=== PATIENT | female | born 1965 ===

== ENCOUNTER 2016-06-17 19:06 | Emergency (ER) | payer MEDICAID ==
[2016-06-17 19:15] VITALS: BP 110/54; PULSE 60; RESP 16; TEMP 98.3; O2SAT 98
[2016-06-17] MEDS ORDERED: Sodium Chloride 0.9% 1,000 ML IV STA (19:53)
[2016-06-17 21:01] LABS: BASO # 0.1 K/uL (0.0-0.2); BASO % 1.1 % (0.0-2.0); EOS # 0.3 K/uL (0.0-0.7); EOS % 4.5 % (0.0-4.0); HEMATOCRIT 37.4 % (34.0-47.0); LYMPH # 2.2 K/uL (1.0-4.3); LYMPH % 33.3 % (20.0-40.0); MEAN CELL VOLUME 86.9 fl (81.0-99.0); MEAN CORPUSCULAR HEMOGLOBIN 27.6 pg (27.0-31.0); MEAN CORPUSCULAR HGB CONC 31.8 g/dL (33.0-37.0); MEAN PLATELET VOLUME 9.2 fl (7.2-11.7); MONO # 0.6 K/uL (0.0-0.8); MONO % 9.7 % (0.0-10.0); NEUT # 3.4 K/uL (1.8-7.0); NEUT % 51.4 % (50.0-75.0); RED CELL DISTRIBUTION WIDTH 14.4 % (11.5-14.5); WHITE BLOOD COUNT 6.5 K/uL (4.8-10.8)
[2016-06-17 21:11] LABS: RBC URINE 8 /hpf (0-3); URINE BACTERIA RARE (<OCC); URINE BILIRUBIN NEGATIVE (NEGATIVE); URINE BLOOD NEGATIVE (NEGATIVE); URINE COLOR YELLOW (YELLOW); URINE GLUCOSE (UA) NEG (Normal); URINE KETONE TRACE mg/dL (NEGATIVE); URINE LEUKOCYTE ESTERASE TRACE Leu/uL (Negative); URINE PROTEIN 30 mg/dL (NEGATIVE); URINE UROBILINOGEN 0.2-1.0 mg/dL (0.2-1.0); WBC URINE 6 /hpf (0-5)
--- NOTE | 2016-06-17 21:16 | ED PDOC ---
HPI: Abdomen Time Seen by Provider: 06/17/16 19:27 Chief Complaint (Nursing): Abdominal Pain Chief Complaint (Provider): Abdominal Pain History Per: Patient History/Exam Limitations: no limitations Onset/Duration Of Symptoms: Days (x3), Intermittent Episodes, Worse Since (today ) Outside of [place] travel?: No Current Symptoms Are (Timing): Still Present Severity: Moderate Pain Scale Rating Of: 6 Location Of Pain/Discomfort: Epigastric Associated Symptoms: Diarrhea (5 episodes today, non-bloody), Back Pain (left flank), Urinary Symptoms (urinary discomfort). denies: Fever, Chest Pain, Other (no cough/shortness of breath) Additional Complaint(s): Enid Mendoza is a 51 year old female, with no pertinent past medical history, who presents to the ED on 06/17/16 for the evaluation of intermittent episodes of moderate, epigastric abdominal pain that she has experienced over the past 3 days. Pain, currently rated at a 6/10, acutely worsened over the course of the day today, prompting ED visit. Associated left flank pain, diarrhea (5 episodes today, non-bloody) and mild urinary discomfort also reported, though she denies fever, chest pain, cough or shortness of breath. PMD: non CPH Past Medical History Reviewed: Historical Data, Nursing Documentation, Vital Signs Vital Signs: Last Vital Signs Temp 98.3 F 06/17/16 19:13 Pulse 60 06/17/16 19:13 Resp 16 06/17/16 19:13 BP 110/54 L 06/17/16 19:13 Pulse Ox 98 06/17/16 21:40 - Medical History PMH: Anxiety, Asthma, Depression, Hypercholesterolemia - Surgical History Surgical History: Cholecystectomy, - Family History Family History: States: Unknown Family Hx - Social History Current smoker - smoking cessation education provided: No Alcohol: None Drugs: Denies - Immunization History Hx Tetanus Toxoid Vaccination: No Hx Influenza Vaccination: No Hx Pneumococcal Vaccination: No - Home Medications Home Medications: Ambulatory Orders Medication Instructions Recorded clonazePAM [Klonopin] 0.5 mg PO BID 09/16/14 oxyCODONE/Acetaminophen [Percocet 1 tab PO Q6H PRN #15 tab 09/16/14 5/325 mg Tab] Ciprofloxacin [Cipro] 500 mg PO Q12 #14 tab 03/17/17 Dicyclomine [Bentyl] 20 mg PO Q12 PRN #20 tab 06/17/16 Ondansetron ODT [Zofran ODT] 4 mg PO Q6 PRN #16 odt 06/17/16 - Allergies Allergies/Adverse Reactions: Allergies Allergy/AdvReac Type Severity Reaction Status Date / Time No Known Allergies Allergy Verified 09/16/14 08:50 Review of Systems Constitutional: Negative for: Fever Cardiovascular: Negative for: Chest Pain Respiratory: Positive for: Shortness of Breath (mild). Negative for: Cough Gastrointestinal: Positive for: Abdominal Pain (epigastric), Diarrhea (5 episodes today, non-bloody) Genitourinary Female: Positive for: Dysuria (mild discomfort) Musculoskeletal: Positive for: Back Pain (left flank) Physical Exam - Reviewed Nursing Documentation Reviewed: Yes Vital Signs Reviewed: Yes - Physical Exam Appears: Positive for: Non-toxic, No Acute Distress Head Exam: Positive for: ATRAUMATIC, NORMOCEPHALIC Skin: Positive for: Normal Color, Warm, Dry Eye Exam: Positive for: Normal appearance, PERRL Neck: Positive for: Normal, Painless ROM, Supple Cardiovascular/Chest: Positive for: Regular Rate, Rhythm. Negative for: Murmur Respiratory: Positive for: Normal Breath Sounds. Negative for: Respiratory Distress Gastrointestinal/Abdominal: Positive for: Soft, Tenderness (epigastric) Back: Positive for: Normal Inspection. Negative for: L CVA Tenderness, R CVA Tenderness Neurologic/Psych: Positive for: Alert, Oriented - Laboratory Results Result Diagrams: 06/17/16 20:50 06/17/16 20:50 - ECG O2 Sat by Pulse Oximetry: 98 (RA) Pulse Ox Interpretation: Normal Medical Decision Making Medical Decision Makin:27 Initial Impression: 51 year old female with epigastric abdominal pain, diarrhea and urinary discomfort Initial Plan: * EKG * CXR * Labs * Lipase * Upreg * Udip * Urine Culture * IV NS 1000ml at 1000mls/hr * Pepcid 20mg IV * Protonix 200mg PO * Bentyl 20mg PO * Reevaluation 22:10 Labs reviews, no clinically significant abnormalities with exception of urine, which is indicative of UTI. Patient reported resolution of symptoms, and is stable for discharge home. Patient will follow up with [facility], and Rx for Ciprofloxacin, Zofran, and Bentyl provided. Clinical Impression: Gastroenteritis and UTI Scribe Attestation: Documented by Kmai Coffey, acting as a scribe for Mateo Prado MD. Provider Scribe Attestation: All medical record entries made by the Scribe were at my direction and personally dictated by me. I have reviewed the chart and agree that the record accurately reflects my personal performance of the history, physical exam, medical decision making, and the department course for this patient. I have also personally directed, reviewed, and agree with the discharge instructions and disposition. Disposition - Clinical Impression Clinical Impression: Gastroenteritis, UTI (urinary tract infection) - Patient ED Disposition Is Patient to be Admitted: No Counseled Patient/Family Regarding: Studies Performed, Diagnosis, Rx Given - Disposition Disposition: Routine/Home Disposition Time: 22:10 Condition: STABLE Prescriptions: Dicyclomine [Bentyl] 20 mg PO Q12 PRN #20 tab PRN Reason: abdominal pain/diarrhea Ciprofloxacin [Cipro] 500 mg PO Q12 #14 tab Ondansetron ODT [Zofran ODT] 4 mg PO Q6 PRN #16 odt PRN Reason: Nausea/Vomiting Instructions: Urinary Tract Infection in Children (ED), Gastroenteritis (ED)
[2016-06-17 21:28] LABS: ALB/GLOB RATIO 1.2 (1.0-2.1); ALKALINE PHOSPHATASE 102 U/L (38-126); ALT/SGPT 66 U/L (9-52); AST/SGOT 50 U/L (14-36); BILIRUBIN,TOTAL 0.4 mg/dl (0.2-1.3); BLOOD UREA NITROGEN 21 mg/dl (7-17); CALCIUM 9.9 mg/dL (8.4-10.2); CARBON DIOXIDE 25 mmol/L (22-30); CHLORIDE 103 mmol/L (98-107); GFR AFRICAN-AMERICAN > 60; GLUCOSE,RANDOM 91 mg/dL (65-105); LIPASE 34 U/L (23-300); POTASSIUM 4.6 MMOL/L (3.6-5.0); SODIUM 139 mmol/l (132-148)
--- NOTE | 2016-06-20 09:56 | CARD ---
APPROVED REPORT EKG Measurement Heart [id number] <Conclusion> Sinus bradycardia Nonspecific T wave abnormality Abnormal ECG
== END 2016-06-17 22:00 | disposition home or self-care (01) ==
LOC: H.ER 19:06
DX: K52.9 Noninfective gastroenteritis and colitis, unspecified (principal); N39.0 Urinary tract infection, site not specified; R19.7 Diarrhea, unspecified; E78.00 Pure hypercholesterolemia, unspecified

== ENCOUNTER 2016-12-19 09:20 | Emergency (ER) | payer MEDICAID ==
[2016-12-19 09:38] VITALS: O2SAT 98
--- NOTE | 2016-12-19 10:16 | ED PDOC ---
HPI: Back Time Seen by Provider: 12/19/16 09:40 Chief Complaint (Nursing): Abnormal Skin Integrity Chief Complaint (Provider): Back Pain and Rash History Per: Patient History/Exam Limitations: no limitations Onset/Duration Of Symptoms: Days (x2) Current Symptoms Are (Timing): Still Present Additional Complaint(s): Enid Mendoza is a 51 year old female with a past medical history of asthma and sciatica presenting to the ED for an evaluation of left sided back pain occurring for 2 days prior to arrival. The patient states she also has an associated general rash occurring for 1 month prior to arrival and reports vaginal itchiness experienced sometimes at night. She states she has not been sexually active for the past 7 years. She denies fever, cough, and any other genitourinary symptoms. PMD: None Provided Past Medical History Reviewed: Historical Data, Nursing Documentation, Vital Signs Vital Signs: Last Vital Signs Temp Pulse Resp BP Pulse Ox 98 12/19/16 09:36 - Medical History PMH: Anxiety, Asthma, Depression, Hypercholesterolemia - Surgical History Surgical History: Cholecystectomy, - Family History Family History: States: Unknown Family Hx - Social History Current smoker - smoking cessation education provided: Yes Alcohol: Other Drugs: Other (heroin/methadone) - Immunization History Hx Tetanus Toxoid Vaccination: No Hx Influenza Vaccination: No Hx Pneumococcal Vaccination: No - Home Medications Home Medications: Ambulatory Orders Medication Instructions Recorded clonazePAM [Klonopin] 0.5 mg PO BID 09/16/14 oxyCODONE/Acetaminophen [Percocet 1 tab PO Q6H PRN #15 tab 09/16/14 5/325 mg Tab] Ciprofloxacin [Cipro] 500 mg PO Q12 #14 tab 06/17/16 Dicyclomine [Bentyl] 20 mg PO Q12 PRN #20 tab 06/17/16 Ondansetron ODT [Zofran ODT] 4 mg PO Q6 PRN #16 odt 06/17/16 Clotrimazole [Itch Relief] 1 dose TP BID #1 cream..g. 12/19/16 Naproxen [Naprosyn] 500 mg PO BID PRN #15 tablet 12/19/16 - Allergies Allergies/Adverse Reactions: Allergies Allergy/AdvReac Type Severity Reaction Status Date / Time No Known Allergies Allergy Verified 12/19/16 09:35 Review of Systems ROS Statement: Except As Marked, All Systems Reviewed And Found Negative Constitutional: Negative for: Fever Respiratory: Negative for: Cough Genitourinary Female: Positive for: Rash (with vaginal itchiness). Negative for : Dysuria, Frequency, Incontinence, Hematuria, Vaginal Discharge, Vaginal Bleeding Musculoskeletal: Positive for: Back Pain (left sided back pain) Physical Exam - Reviewed Nursing Documentation Reviewed: Yes Vital Signs Reviewed: Yes - Physical Exam Appears: Positive for: Non-toxic, No Acute Distress Head Exam: Positive for: ATRAUMATIC, NORMOCEPHALIC Skin: Positive for: Normal Color, Warm, Dry Eye Exam: Positive for: Normal appearance Neck: Positive for: Normal Cardiovascular/Chest: Positive for: Regular Rate, Rhythm Respiratory: Positive for: Normal Breath Sounds Pelvic Exam: Positive for: Other (minimal scaling, no vesicles, no erythema, no induration). Negative for: Discharge Back: Positive for: L CVA Tenderness Neurologic/Psych: Positive for: Alert, Oriented (x3) - Laboratory Results Result Diagrams: 12/19/16 10:32 12/19/16 10:32 - ECG O2 Sat by Pulse Oximetry: 98 (RA) Pulse Ox Interpretation: Normal Medical Decision Making Medical Decision Making: Time: 09:40 Impression: Flank pain and general rash Plan: * CT Abd & Pelvis W/O PO or IV contrast * ED EKG * CMP * CBC (with differential) * Toradol 15 mg IVP * Urinalysis * Reevaluation Accession No. : [id number] Patient Name / ID : ONELIA IRIS / [id number] Exam Date : 12/19/2016 11:02:25 ( Approved ) Study Comment : Sex / Age : F / 51Y Creator : Chula Lubin Dictator : Chula Lubin Chief Analytics Officer : Human Resources Benefits Specialist : Chula Lubin Approver2 : Report Date : 12/19/2016 11:27:49 My Comment : PROCEDURE: CT Abdomen and Pelvis without intravenous contrast HISTORY: L CVAT COMPARISON: Comparison is made to 09/16/2014 TECHNIQUE: Axial and reformatted coronal and sagittal CT images of the abdomen and pelvis were obtained without IV or oral contrast administration.. Contrast Dose: 0 Radiation dose: Total exam DLP = 741.7 mGy-cm. This CT exam was performed using one or more of the following dose reduction techniques: Automated exposure control, adjustment of the mA and/or kV according to patient size, and/or use of iterative reconstruction technique. FINDINGS: LOWER THORAX: Unremarkable. LIVER: The liver is enlarged demonstrate moderate diffuse low attenuation suggestive of hepatic steatosis. GALLBLADDER AND BILE DUCTS: Status post cholecystectomy. PANCREAS: Unremarkable. No gross lesion or ductal dilatation. SPLEEN: Unremarkable. ADRENALS: 8 millimeter low-attenuation nodule at the left adrenal gland is again noted. The right adrenal glands grossly unremarkable. KIDNEYS AND URETERS: Unremarkable. No hydronephrosis. No solid mass. VASCULATURE: Unremarkable. No aortic aneurysm. BOWEL: Unremarkable. No obstruction. No gross mural thickening. APPENDIX: No evidence of appendicitis. PERITONEUM: Unremarkable. No free fluid. No free air. LYMPH NODES: Unremarkable. No enlarged lymph nodes. BLADDER: Unremarkable. REPRODUCTIVE: Again seen is heterogeneous low-attenuation fat containing mass lesion at the adnexa likely represent dermoid cyst/ teratoma measures 5 centimeter in the transverse diameter and has not significantly changed since the previous exam. BONES: No acute fracture. OTHER FINDINGS: None. IMPRESSION: No evidence of nephrolithiasis or hydronephrosis. No evidence of acute pathology in the abdomen and pelvis. Hepatomegaly and moderate hepatic steatosis. 5 centimeter low-attenuation fatty containing mass lesion at the midline pelvis likely represent dermoid cyst. Scribe Attestation: Documented by Bella Garcia, acting as a scribe for Vero Moore MD. Provider Scribe Attestation: All medical record entries made by the Scribe were at my direction and personally dictated by me. I have reviewed the chart and agree that the record accurately reflects my personal performance of the history, physical exam, medical decision making, and the department course for this patient. I have also personally directed, reviewed, and agree with the discharge instructions and disposition. Disposition - Clinical Impression Clinical Impression: Dermoid cyst, Tinea cruris, Back pain - Disposition Referrals: [facility] [Outside] Disposition: Routine/Home Disposition Time: 12:25 Condition: STABLE Prescriptions: Clotrimazole [Itch Relief] 1 dose TP BID #1 cream..g. Naproxen [Naprosyn] 500 mg PO BID PRN #15 tablet PRN Reason: Pain, Moderate (4-7) Instructions: Jock Itch (ED), Back Pain (ED) Forms: [facility] (Turkmen) Print Language: ROMANIAN
[2016-12-19 10:39] LABS: RBC URINE 3 /hpf (0-3); URINE BILIRUBIN NEGATIVE (NEGATIVE); URINE BLOOD NEGATIVE (NEGATIVE); URINE COLOR YELLOW (YELLOW); URINE GLUCOSE (UA) NEG (Normal); URINE KETONE NEGATIVE (NEGATIVE); URINE LEUKOCYTE ESTERASE TRACE Leu/uL (Negative); URINE PROTEIN NEGATIVE (NEGATIVE); URINE UROBILINOGEN 0.2-1.0 mg/dL (0.2-1.0); WBC URINE 1 /hpf (0-5)
[2016-12-19 11:02] LABS: BASO # 0.1 K/uL (0.0-0.2); BASO % 0.9 % (0.0-2.0); EOS # 0.2 K/uL (0.0-0.7); EOS % 2.5 % (0.0-4.0); HEMATOCRIT 33.5 % (34.0-47.0); LYMPH # 1.4 K/uL (1.0-4.3); LYMPH % 22.2 % (20.0-40.0); MEAN CELL VOLUME 87.8 fl (81.0-99.0); MEAN CORPUSCULAR HEMOGLOBIN 28.5 pg (27.0-31.0); MEAN CORPUSCULAR HGB CONC 32.5 g/dL (33.0-37.0); MEAN PLATELET VOLUME 8.9 fl (7.2-11.7); MONO # 0.5 K/uL (0.0-0.8); MONO % 7.9 % (0.0-10.0); NEUT # 4.1 K/uL (1.8-7.0); NEUT % 66.5 % (50.0-75.0); RED CELL DISTRIBUTION WIDTH 13.8 % (11.5-14.5); WHITE BLOOD COUNT 6.2 K/uL (4.8-10.8)
[2016-12-19 11:18] LABS: ALB/GLOB RATIO 1.5 (1.0-2.1); ALKALINE PHOSPHATASE 83 U/L (38-126); ALT/SGPT 47 U/L (9-52); AST/SGOT 37 U/L (14-36); BILIRUBIN,TOTAL 0.3 mg/dl (0.2-1.3); BLOOD UREA NITROGEN 11 mg/dl (7-17); CALCIUM 9.7 mg/dL (8.4-10.2); CARBON DIOXIDE 26 mmol/L (22-30); CHLORIDE 103 mmol/L (98-107); GFR AFRICAN-AMERICAN > 60; GLUCOSE,RANDOM 90 mg/dL (65-105); SODIUM 140 mmol/l (132-148)
--- NOTE | 2016-12-19 11:29 | CT ---
PROCEDURE: CT Abdomen and Pelvis without intravenous contrast HISTORY: L CVAT COMPARISON: Comparison is made to 09/16/2014 TECHNIQUE: Axial and reformatted coronal and sagittal CT images of the abdomen and pelvis were obtained without IV or oral contrast administration.. Contrast Dose: 0 Radiation dose: Total exam DLP = 741.7 mGy-cm. This CT exam was performed using one or more of the following dose reduction techniques: Automated exposure control, adjustment of the mA and/or kV according to patient size, and/or use of iterative reconstruction technique. FINDINGS: LOWER THORAX: Unremarkable. LIVER: The liver is enlarged demonstrate moderate diffuse low attenuation suggestive of hepatic steatosis. GALLBLADDER AND BILE DUCTS: Status post cholecystectomy. PANCREAS: Unremarkable. No gross lesion or ductal dilatation. SPLEEN: Unremarkable. ADRENALS: 8 millimeter low-attenuation nodule at the left adrenal gland is again noted. The right adrenal glands grossly unremarkable. KIDNEYS AND URETERS: Unremarkable. No hydronephrosis. No solid mass. VASCULATURE: Unremarkable. No aortic aneurysm. BOWEL: Unremarkable. No obstruction. No gross mural thickening. APPENDIX: No evidence of appendicitis. PERITONEUM: Unremarkable. No free fluid. No free air. LYMPH NODES: Unremarkable. No enlarged lymph nodes. BLADDER: Unremarkable. REPRODUCTIVE: Again seen is heterogeneous low-attenuation fat containing mass lesion at the adnexa likely represent dermoid cyst/ teratoma measures 5 centimeter in the transverse diameter and has not significantly changed since the previous exam. BONES: No acute fracture. OTHER FINDINGS: None. IMPRESSION: No evidence of nephrolithiasis or hydronephrosis. No evidence of acute pathology in the abdomen and pelvis. Hepatomegaly and moderate hepatic steatosis. 5 centimeter low-attenuation fatty containing mass lesion at the midline pelvis likely represent dermoid cyst.
--- NOTE | 2016-12-19 11:50 | CARD ---
APPROVED REPORT EKG Measurement Heart [id number] <Conclusion> Normal sinus rhythm Normal ECG
== END 2016-12-19 12:34 | disposition home or self-care (01) ==
LOC: H.ER 09:20
DX: D28.7 Benign neoplasm of other specified female genital organs (principal); B35.6 Tinea cruris; M54.9 Dorsalgia, unspecified; J45.909 Unspecified asthma, uncomplicated; K76.0 Fatty (change of) liver, not elsewhere classified; F17.200 Nicotine dependence, unspecified, uncomplicated; Z86.59 Personal history of other mental and behavioral disorders
CPT/HCPCS: 74176; 80053; 81003; 85025; 93005; 96374; 99282; J1885